=== PATIENT | male | born 1940 | race Caucasian/White ===

== ENCOUNTER 2022-04-16 12:10 | Day surgery (SDC) | payer MEDICARE ==
[2022-04-16] MEDS ORDERED: Marcaine Mpf 0.5% Vial 30 Ml IJ ONE (12:11)
[2022-04-16] MEDS ORDERED: Depo-Medrol 40 MG/ML IM ONE (12:11)
[2022-04-16] MEDS ORDERED: DIPRIVAN 200 MG/20 ML IV ONE (13:30)
[2022-04-16] MEDS ORDERED: Lactated Ringers 1,000 ML IV ONE (14:29)
--- NOTE | 2022-04-18 15:46 | XRAY ---
Indication: Bilateral hip intra-articular injection. Intraoperative fluoroscopy provided for 33 seconds. 2 AP spot image(s) submitted for interpetation demonstrates needle tip projecting lateral to the the right and left femoral neck. Small amount of contrast injected for needle tip placement. Correlate with intraoperative findings/report.
== END 2022-04-16 13:55 | disposition home or self-care (01) ==
LOC: SDC-PAIN 12:10
PROVIDERS: ATTEND Psychiatry & Neurology Pain Medicine
DX: M16.0 Bilateral primary osteoarthritis of hip (principal); Z79.899 Other long term (current) drug therapy
CPT/HCPCS: 20610; 73521; 77002; J1030; J2704; Q9966